=== PATIENT | female | born 1995 ===

== ENCOUNTER 2023-05-06 10:21 | Outpatient (CLI) | payer OTHER | END 2023-05-06 11:12 | disposition home or self-care (01) | LOC: PRENATAL 10:21 | PROVIDERS: ATTEND Obstetrics & Gynecology Maternal & Fetal Medicine | DX: O36.80X0 Pregnancy with inconclusive fetal viability, not applicable or unspecified (principal); Z36.82 Encounter for antenatal screening for nuchal translucency; Z3A.13 13 weeks gestation of pregnancy ==

== ENCOUNTER 2023-06-25 12:05 | Outpatient (CLI) | payer OTHER | END 2023-06-25 12:06 | disposition home or self-care (01) | LOC: PRENATAL 12:05 | PROVIDERS: ATTEND Obstetrics & Gynecology Maternal & Fetal Medicine | DX: O35.3XX0 Maternal care for (suspected) damage to fetus from viral disease in mother, not applicable or unspecified (principal); O44.00 Complete placenta previa NOS or without hemorrhage, unspecified trimester; Z3A.20 20 weeks gestation of pregnancy ==

== ENCOUNTER 2023-09-13 09:34 | Outpatient (CLI) | payer OTHER | END 2023-09-13 09:40 | disposition home or self-care (01) | LOC: PRENATAL 09:34 | PROVIDERS: ATTEND Obstetrics & Gynecology Maternal & Fetal Medicine | DX: O26.849 Uterine size-date discrepancy, unspecified trimester (principal); O36.8199 Decreased fetal movements, unspecified trimester, other fetus; Z3A.32 32 weeks gestation of pregnancy ==

== ENCOUNTER 2023-10-28 13:45 | Inpatient (IN) | payer OTHER ==
[~2023-10-28] VITALS: Ht 160 cm; Wt 60.8 kg
[2023-10-31] MEDS ORDERED: PRENATAL 19 TA1 EAC2 PO (07:53)
[2023-10-31 08:42] LABS: PH,URINE 6.5 (5.0-8.0); URINE APPEARANCE Clear; URINE BILIRRUBIN Negative (NEGATIVE); URINE BLOOD Negative; URINE COLOR Yellow; URINE GLUCOSE Negative (NEGATIVE); URINE LEUKOCYTE Small; URINE NITRATE Negative; URINE PROTEIN Negative (NEGATIVE); URINE UROBILINOGEN 0.2 E.U./dl
[2023-10-31 08:43] LABS: HEMATOCRIT 36.3 % (36.0-45.00); HEMOGLOBIN 12.2 g/dL (12.0-15.00); MEAN CELL VOLUME 91.1 fL (80.00-100.00); MEAN CORPUSCULAR HEMOGLOBIN 30.5 pg (27.00-32.0); MEAN CORPUSCULAR HGB CONC 33.5 g/dl (32.0-36.0); PLATELET COUNT 228 K/uL (150-450); RED BLOOD COUNT 3.98 M/uL (4.00-6.00); URINE BACTERIA 1049.5 uL (0.0-1933); URINE EPITHELIAL CELLS 32.4 uL (0.0-38.8); URINE WBC 68.9 uL (0.0-23.2)
[2023-10-31] MEDS ORDERED: OXYTOCIN 500 ML IV SCH (08:45)
[2023-10-31 08:51] LABS: URINE RBC 0.1 uL (0.0-20.8)
[2023-10-31 09:20] LABS: INR < 0.93; PARTIAL THROMBOPLASTIN TIME 29.3 SECONDS (22.0-34.0); PROTHROMBIN TIME 9.3 SECONDS (9.0-11.5)
[2023-10-31 09:25] LABS: BILIRUBIN TOTAL 0.25 mg/dL (0.3-1.2); CALCIUM 9.1 mg/dL (8.5-10.1); CREATININE SERUM 0.71 mg/dL (0.55-1.02); GFR 96.66; GLOBULINA 3.7 G/DL (2.4-3.5); POTASSIUM 4.27 mEq/L (3.5-5.1); T4 FREE 1.17 NG/ML (0.76-1.46); TOTAL PROTEIN 6.7 gm/dL (6.4-8.2); TSH 1.2 uIU/mL (0.358-3.74)
[2023-10-31] MEDS ORDERED: ERYTHROMYCIN BASE 1 GM TUBE OP ONE ×2 (11:56→15:45)
[2023-10-31] MEDS ORDERED: CHLORHEXIDINE GLUCONATE 120 ML BOTTLE TOP ONE ×2 (11:56→15:45)
[2023-10-31] MEDS ORDERED: OXYTOCIN 20 UNITS/1000ML RL PIGGYBAG IV ONE (11:57)
[2023-10-31] MEDS ORDERED: LIDOCAINE HCL 1% 10ML VIAL IJ ONE (15:45)
[2023-10-31] MEDS ORDERED: OXYTOCIN 1,000 ML IV SCH (15:45)
[2023-10-31] MEDS ORDERED: CHLORHEXIDINE GLUCONATE 120 ML BOTTLE TP SCH (16:15)
[2023-10-31] MEDS ORDERED: ERYTHROMYCIN BASE 1 GM TUBE OP SCH (16:15)
[2023-10-31] MEDS ORDERED: IBUprofen 800 MG TABLET PO PRN (16:15)
[2023-10-31] MEDS ORDERED: DOCUSATE SODIUM 100MG CAP PO SCH (17:00)
[2023-10-31 18:09] LABS: ABG PH 7.285 (7.35-7.45); ABG pCO2 48.7 mmHg (35-45)
[2023-10-31 18:10] LABS: ABG PO2 21.8 mmHg (80-100); BASE EXCESS -4.3 mmol/l; BICARBONATE 22.6 mmol/l (23-25); SaO2 28.5 %; Tco2 24.1 mmol/l; o2 21 %
[2023-10-31] MEDS ORDERED: BENZOCAINE/MENTHOL 90 ML BOTTLE TOP SCH (20:00)
[2023-11-01 07:17] LABS: HEMATOCRIT 32.7 % (36.0-45.00); MEAN CELL VOLUME 91.4 fL (80.00-100.00); MEAN CORPUSCULAR HEMOGLOBIN 30.8 pg (27.00-32.0); MEAN CORPUSCULAR HGB CONC 33.7 g/dl (32.0-36.0); PLATELET COUNT 192 K/uL (150-450); RED BLOOD COUNT 3.58 M/uL (4.00-6.00); RED CELL DISTRIBUTION WIDTH 14.1 % (11.5-14.5)
[2023-11-02] MEDS ORDERED: COLACE100 MG PO (09:59)
[2023-11-02] MEDS ORDERED: IBUPROFEN800 MG PO (09:59)
== END 2023-11-02 13:35 | disposition home or self-care (01) | DRG 806 ==
LOC: LDR 10-31 07:11 → OB/GYN 10-31 07:11 → LDR 10-31 07:20 → ENRESERV 10-31 09:11 → OB/GYN 10-31 15:47 → LDR 11-01 13:45 → OB/GYN 11-02 13:35
PROVIDERS: ADMIT Student in an Organized Health Care Education/Training Program; ATTEND Student in an Organized Health Care Education/Training Program
PROC: 10E0XZZ Delivery of Products of Conception, External Approach (ICD-10-PCS; principal; 2023-10-31)
PROC: 0KQM0ZZ Repair Perineum Muscle, Open Approach (ICD-10-PCS; 2023-10-31)
PROC: 4A1HXCZ Monitoring of Products of Conception, Cardiac Rate, External Approach (ICD-10-PCS; 2023-10-31)
DX: O70.1 Second degree perineal laceration during delivery (principal); O41.03X0 Oligohydramnios, third trimester, not applicable or unspecified; Z37.0 Single live birth; Z3A.38 38 weeks gestation of pregnancy; Z20.822 Contact with and (suspected) exposure to COVID-19